=== PATIENT | female | born 1955 | race Caucasian/White ===

== ENCOUNTER 2018-11-14 13:31 | Inpatient (IN) | payer OTHER ==
[~2018-11-14] VITALS: Ht 165.1 cm; Wt 88.0 kg
[~2018-11-14 13:31] MED LIST: HYD25 PO; METOPROLOL50 MG PO; NAPROXEN D/R500 MG PO; NEU300 PO
--- NOTE | 2018-11-14 13:41 | NUR ---
AGENCY DOCUMENTATION DONE BY Staff Name/Title - : ROB CHILD JR [employer] User ID - : [id number] Agency Name - : [employer] Time Documented - From - : 699 To - : 1929
--- NOTE | 2018-11-14 13:47 | NUR ---
ASSUMED PATIENT CARE. NURSING ASSESSMENT COMPLETED.
--- NOTE | 2018-11-14 14:01 | NUR ---
AT BEDSIDE FOR MSE.
[2018-11-14 14:55] LABS: BASOPHIL % 0.6 % (0-2); PLATELET COUNT 216 x10^3mcL (130-400); RED CELL DISTRIBUTION WIDTH 13.5 % (11.5-14.5)
[2018-11-14 15:00] LABS: CALCIUM 8.9 mg/dL (8.5-10.1); CHLORIDE SERUM 105 mmol/L (98-107); CREATININE SERUM 0.6 mg/dL (0.6-1.0); GFR1 > 60 mL/min; GLUCOSE SERUM 92 mg/dL (74-106); POTASSIUM SERUM 3.6 mmol/L (3.5-5.1); SODIUM SERUM 141 mmol/L (136-145)
[2018-11-14 16:51] LABS: CHOLESTEROL/HDL RATIO 3.2; MAGNESIUM 2.2 mg/dL (1.8-2.4); PHOSPHOROUS 4.4 mg/dL (2.5-4.9)
--- NOTE | 2018-11-14 16:53 | NUR ---
DISPO AND MEDICAL DECISION MAKING, INPATIENT ADMISSION FOR FURTHER MANAGEMENT. PATIENT CARE REPORT GIVEN TO NICKIE, CONTINUITY OF CARE ENDORSED.
[2018-11-14 16:59] LABS: FREE T4 1.01 ng/dL (0.76-1.46); FREE THYROXINE INDEX 2.7 ug/dL (1.4-4.5); T4(THYROXINE) 7.9 ug/dL (4.7-13.3)
--- NOTE | 2018-11-14 17:20 | NUR ---
PT WAS RECEIVED BY PRIMARY NURSE NICKIE FROM ED VIA [facility] AT 1705H. PT SEEN SITTING ON THE EDGE OF THE BED, AAOX4. CAME IN DUE TO LEFT ARM PAIN X4 DAYS. DENIES HEADACHE/DIZZINESS. NO SOB NOTED, LUNG SOUNDS CTA. DENIES CHEST PAIN/PRESSURE, SR ON THE MONITOR. DENIES ABDOMINAL DISCOMFORT. HAD REGULAR BM TODAY. VOIDS. IV SITE ON THE RAC IS PATENT AND INTACT. SIDE RAILS UPX2. CALL LIGHT ON REACH. PRIMARY NURSE NICKIE AT BEDSIDE FOR CONTINUITY OF CARE
[2018-11-14 17:22] VITALS: BP 180/82
[2018-11-14 17:26] VITALS: Ht 165.1 cm; Wt 88.0 kg
[2018-11-14] MEDS ORDERED: ASPIRIN FOR CHI81 M1 PO (17:31)
[2018-11-14] MEDS ORDERED: VOL50 PO (17:34)
[2018-11-14] MEDS ORDERED: FUROSEMIDE20 MG PO (17:34)
[2018-11-14] MEDS ORDERED: NOR10 PO ×2 (17:35→17:36)
[2018-11-14 17:51] LABS: T3 TOTAL 0.98 ng/mL
--- NOTE | 2018-11-14 18:09 | NUR ---
PATIENT'S B/P IS 180/[address] CHENG AT BEDSIDE AND IS AWARE. MEDICATED AT THIS TIME WITH NTG. WILL MONITOR FOR EFFECT. PATIENT IS SITTITN UP IN BED WITH FAMILY MEMBERS AT BEDSIDE. CONTINUES TO DENY ANY PAIN OR DISCOMFORT. WILL CONTINUE TO MONITOR.
--- NOTE | 2018-11-14 18:46 | NUR ---
PATIENT SITITING UP IN BED WITH FAMILY MEMBERS AT BEDSIDE. B/P 170/78 AFTER NTG GIVEN SL. CONTINUES TO DENY ANY PAIN.
[2018-11-14 18:52] VITALS: BP 170/78
--- NOTE | 2018-11-14 19:46 | NUR ---
AWAKE AND ALERT, ORIENTED TO NAME, PLACE, TIME AND SITUATION. SPEECH CLEAR AND APPROPRIATE. BREATHING EVEN AND UNLABORED ON ROOM AIR. ABLE TO COMPLETE SENTENCES WITHOUT DIFFICULTY. DENIES HAVING CHEST PAIN. SINUS RHYTHM WITH PACS NOTED. STATED HAVING PAIN TO LEFT FOREARM, STATED GOING ON FOR 2 WEEKS. TYLENOL ADMINISTERED PO FOR PAIN. REINFORCED NEED TO USE CALL LIGHT TO CALL FOR ASSISTANCE. PLACED WITHIN EASY REACH.
[2018-11-14 22:28] VITALS: BP 130/55
--- NOTE | 2018-11-14 23:25 | NUR ---
EYES CLOSED, BREATHING EVEN AND UNLABORED ON ROOM AIR. CALL LIGHT WITHIN EASY REACH.
[2018-11-15 01:09] LABS: microscopic required? NO
[2018-11-15 01:33] LABS: UA SPECIFIC GRAVITY <=1.005 (1.005-1.035); urine erythrocyte NEGATIVE (NEGATIVE)
[2018-11-15 02:09] LABS: AMPHETAMINE QUAL UR NONE DETECTED (See below)
[2018-11-15 05:57] VITALS: BP 169/85
--- NOTE | 2018-11-15 06:22 | NUR ---
AWAKE AND ALERT, STATED HAVING 3-4/10 HEADACHE. TYLENOL ADMINISTERED PO PER PRN ORDER. BREATHING EVEN AND UNLABORED ON ROOM AIR. CALL LIGHT WITHIN EASY REACH. SALINE LOCK TO RIGHT HAND INTACT.
[2018-11-15 06:51] VITALS: BP 148/78
[2018-11-15 06:56] LABS: BASOPHIL % 0.6 % (0-2); PLATELET COUNT 206 x10^3mcL (130-400)
--- NOTE | 2018-11-15 07:06 | NUR ---
AWAKE AND ALERT, IN NO ACUTE DISTRESS. ENDORSED TO NURSE GALA
[2018-11-15 07:12] LABS: CARBON DIOXIDE 28.2 mmol/L (21-32); CHLORIDE SERUM 105 mmol/L (98-107); CREATININE SERUM 0.5 mg/dL (0.6-1.0); GFR1 > 60 mL/min; GLUCOSE SERUM 91 mg/dL (74-106); MAGNESIUM 2.5 mg/dL (1.8-2.4); POTASSIUM SERUM 3.8 mmol/L (3.5-5.1); SODIUM SERUM 141 mmol/L (136-145)
--- NOTE | 2018-11-15 07:48 | NUR ---
AAO TIMES 4. TELE # 13 SR. LUNGS CTA. NO SOB. O2 SAT ON RA 97%. BS'S ACTIVE TIMES 4. PRESTON STRONG. IV SITE RIGHT HAND PATENT, CDI. COOPERATIVE. PERIPHERAL PULSES PALPABLE. NO EDEMA. NO C/O PAIN. NO C/O SOB.
[2018-11-15 09:04] VITALS: BP 131/61
[2018-11-15 11:48] VITALS: BP 165/78
[2018-11-15 16:53] VITALS: BP 155/76
--- NOTE | 2018-11-15 18:12 | NUR ---
AAO TIMES 4. TELE # 13 SR. VS'S STABLE. NO SOB. NO C/O PAIN AT THIS TIME. SHE STATES HER HEADACHE IS BETTER. IV SITE CDI. TO RIGHT HAND. COOPERATIVE. FAMILY PRESENT, SUPPORTIVE.
--- NOTE | 2018-11-15 19:39 | NUR ---
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
[2018-11-15 20:19] VITALS: BP 120/75
--- NOTE | 2018-11-15 21:00 | NUR ---
PM MEDS GIVEN,SWALLOWS WELL.
--- NOTE | 2018-11-16 02:00 | NUR ---
SLEEPING WELL,NO RESP DISTRESS.
--- NOTE | 2018-11-16 05:46 | NUR ---
SLEEPING WELL DURING THE NIGHT.NO REP DISTRESS,NO CHEST PAIN,NO RESP DISTRESS.WILL ENDORSE TO NEXT SHIFT.
[2018-11-16 06:06] VITALS: BP 156/68
[2018-11-16 06:24] LABS: BASOPHIL % 0.6 % (0-2); PLATELET COUNT 220 x10^3mcL (130-400); RED CELL DISTRIBUTION WIDTH 13.5 % (11.5-14.5)
[2018-11-16 06:47] LABS: CALCIUM 9.2 mg/dL (8.5-10.1); CARBON DIOXIDE 27.2 mmol/L (21-32); CHLORIDE SERUM 104 mmol/L (98-107); CREATININE SERUM 0.5 mg/dL (0.6-1.0); GFR1 > 60 mL/min; GLUCOSE SERUM 97 mg/dL (74-106); POTASSIUM SERUM 3.5 mmol/L (3.5-5.1); SODIUM SERUM 141 mmol/L (136-145)
[2018-11-16 08:16] VITALS: BP 154/78
--- NOTE | 2018-11-16 09:21 | NUR ---
AAO TIMES 4. TELE # 13 SR. LUNGS CTA. NO SOB. O2 SAT ON RA 100%. BS'S ACTIVE TIMES 4. PRESTON, BRP WITHOUT DIFFICULTY. IV SITE CDI. SL PATENT, CDI. COOPERATIVE. NO C/O PAIN.
[2018-11-16 12:18] VITALS: BP 152/80
--- NOTE | 2018-11-16 14:18 | NUR ---
GAVE PATIENT AND FAMILY DISCHARGE INSTRUCTIONS, NO PRESCRIPTION. SHE WILL CONTINUE HOME MEDICATIONS. SHE VERBALIZED "I UNDERSTAND" TO ALL INSTRUCTIONS. REMOVED SALINE LOCK ANGIO INTACT.
== END 2018-11-16 14:16 | disposition home or self-care (01) | DRG 199 ==
LOC: ED 13:31 → DU 16:03
PROVIDERS: Emergency Medicine; ADMIT Internal Medicine
DX: I16.0 Hypertensive urgency (principal); I25.2 Old myocardial infarction; S56.812A Strain of other muscles, fascia and tendons at forearm level, left arm, initial encounter; I10 Essential (primary) hypertension; M19.90 Unspecified osteoarthritis, unspecified site; Z68.34 Body mass index [BMI] 34.0-34.9, adult; X58.XXXA Exposure to other specified factors, initial encounter; Y93.89 Activity, other specified; Y92.018 Other place in single-family (private) house as the place of occurrence of the external cause; Z79.82 Long term (current) use of aspirin; Z79.899 Other long term (current) drug therapy
CPT/HCPCS: 83880; 84439; G0378; Q0092

== ENCOUNTER 2019-08-18 23:08 | Emergency (ER) | payer OTHER ==
[~2019-08-18] VITALS: Ht 160 cm; Wt 89.4 kg
[~2019-08-18 23:08] MED LIST changes: +ASPIRIN FOR CHI81 M1 PO; +ATORVASTATIN CA40 M1 PO; +CORE25 PO; +ELIQUIS5 MG PO; +FUROSEMIDE20 MG PO; +LASIX20 MG PO; +LOTENSIN20 MG PO; +MERREM IV1 GM INJ; +NOR10 PO; +VOL50 PO; +ZES20 PO
[2019-08-18 23:15] VITALS: Ht 160 cm; Wt 89.4 kg
[2019-08-19 00:37] VITALS: BP 169/84
== END 2019-08-19 00:37 | disposition home or self-care (01) ==
LOC: ED 23:08
DX: K59.00 Constipation, unspecified (principal); R11.0 Nausea; I10 Essential (primary) hypertension; E78.00 Pure hypercholesterolemia, unspecified
CPT/HCPCS: Q0092

== ENCOUNTER 2019-08-25 19:47 | Inpatient (IN) | payer OTHER ==
[~2019-08-25] VITALS: Ht 160 cm; Wt 89.4 kg
[2019-08-25 19:56] VITALS: Ht 160 cm; Wt 89.4 kg
[2019-08-25 20:53] LABS: BASOPHIL % 0.7 % (0-2); PLATELET COUNT 176 x10^3mcL (130-400); RED CELL DISTRIBUTION WIDTH 13.7 % (11.5-14.5)
[2019-08-25 21:09] LABS: ALBUMIN 3.6 g/dL (3.4-5.0); ALKALINE PHOSPHATASE 70 U/L (46-116); ALT/SGPT 32 U/L (14-59); AST/SGOT 22 U/L (15-37); BILIRUBIN TOTAL 0.5 mg/dL (0.20-1.00); CALCIUM 8.7 mg/dL (8.5-10.1); CARBON DIOXIDE 29.5 mmol/L (21-32); CHLORIDE SERUM 103 mmol/L (98-107); CREATININE SERUM 0.7 mg/dL (0.6-1.0); GFR1 > 60 mL/min; GLUCOSE SERUM 110 mg/dL (74-106); SODIUM SERUM 141 mmol/L (136-145); TOTAL PROTEIN, SERUM 6.9 g/dL (6.4-8.2)
[2019-08-25 21:13] LABS: POTASSIUM SERUM 2.8 mmol/L (3.5-5.1)
[2019-08-25 21:17] LABS: FREE T4 1.21 ng/dL (0.76-1.46); T4(THYROXINE) 8.4 ug/dL (4.7-13.3)
[2019-08-25 21:55] LABS: T3 TOTAL 1.42 ng/mL
[2019-08-25] MEDS ORDERED: ZESTRIL40 MG PO (23:05)
[2019-08-25] MEDS ORDERED: CIPRO500 MG PO (23:06)
[2019-08-25] MEDS ORDERED: AMLODIPINE BES2.5 M1 PO (23:06)
[2019-08-26] VITALS (8 sets, daily range): BP systolic 132–182; BP diastolic 66–86
[2019-08-26 00:58] LABS: PHOSPHOROUS 3.3 mg/dL (2.5-4.9)
[2019-08-26 01:02] LABS: CHOLESTEROL/HDL RATIO 1.8
[2019-08-26 02:48] LABS: microscopic required? NO
[2019-08-26 02:59] LABS: UA SPECIFIC GRAVITY 1.015 (1.005-1.035); urine erythrocyte NEGATIVE (NEGATIVE)
[2019-08-26 03:16] LABS: AMPHETAMINE QUAL UR NONE DETECTED (See below)
[2019-08-26 06:33] LABS: BASOPHIL % 0.7 % (0-2); PLATELET COUNT 176 x10^3mcL (130-400); RED CELL DISTRIBUTION WIDTH 13.4 % (11.5-14.5)
[2019-08-26 07:27] LABS: CARBON DIOXIDE 27.9 mmol/L (21-32); CHLORIDE SERUM 106 mmol/L (98-107); CREATININE SERUM 0.5 mg/dL (0.6-1.0); GFR1 > 60 mL/min; GLUCOSE SERUM 100 mg/dL (74-106); MAGNESIUM 2.1 mg/dL (1.8-2.4); PHOSPHOROUS 3.5 mg/dL (2.5-4.9); SODIUM SERUM 142 mmol/L (136-145)
[2019-08-27 05:25] VITALS: BP 151/86
[2019-08-27 06:35] LABS: BASOPHIL % 0.8 % (0-2); PLATELET COUNT 176 x10^3mcL (130-400); RED CELL DISTRIBUTION WIDTH 14.1 % (11.5-14.5)
[2019-08-27 07:25] LABS: CALCIUM 9.2 mg/dL (8.5-10.1); CARBON DIOXIDE 28.5 mmol/L (21-32); CHLORIDE SERUM 104 mmol/L (98-107); CREATININE SERUM 0.6 mg/dL (0.6-1.0); GFR1 > 60 mL/min; GLUCOSE SERUM 101 mg/dL (74-106); MAGNESIUM 2.2 mg/dL (1.8-2.4); PHOSPHOROUS 3.9 mg/dL (2.5-4.9); POTASSIUM SERUM 3.5 mmol/L (3.5-5.1); SODIUM SERUM 140 mmol/L (136-145)
[2019-08-27 09:47] VITALS: BP 150/79
[2019-08-27] MEDS ORDERED: MACROBID100 MG PO (10:33)
[2019-08-27] MEDS ORDERED: DILTIAZEM HCL120 M3 PO (10:33)
[2019-08-27 11:05] VITALS: BP 150/79
== END 2019-08-27 12:59 | disposition home or self-care (01) | DRG 689 ==
LOC: ED 19:47 → DU 22:22 → MU 08-26 17:15
PROVIDERS: Emergency Medicine; ADMIT Internal Medicine
DX: N39.0 Urinary tract infection, site not specified (principal); I21.A1 Myocardial infarction type 2; I16.1 Hypertensive emergency; I42.9 Cardiomyopathy, unspecified; I11.9 Hypertensive heart disease without heart failure; E78.00 Pure hypercholesterolemia, unspecified; E87.6 Hypokalemia; Z79.899 Other long term (current) drug therapy
CPT/HCPCS: 83880; 84439; G0378; J2185; J3480; J7050; Q0092; U0003-CS

== ENCOUNTER 2019-09-02 23:45 | Emergency (ER) | payer OTHER ==
[~2019-09-02] VITALS: Ht 170.2 cm; Wt 81.6 kg
[~2019-09-02 23:45] MED LIST changes: +AMLODIPINE BES2.5 M1 PO; +CIPRO500 MG PO; +DILTIAZEM HCL120 M3 PO; +MACROBID100 MG PO; +ZESTRIL40 MG PO
[2019-09-02 23:56] VITALS: Ht 170.2 cm; Wt 81.6 kg
[2019-09-03 01:52] LABS: BASOPHIL % 1.4 % (0-2); PLATELET COUNT 210 x10^3mcL (130-400); RED CELL DISTRIBUTION WIDTH 12.6 % (11.5-14.5)
[2019-09-03 02:33] LABS: CALCIUM 8.8 mg/dL (8.5-10.1); CARBON DIOXIDE 25.4 mmol/L (21-32); CHLORIDE SERUM 105 mmol/L (98-107); CREATININE SERUM 0.6 mg/dL (0.6-1.0); GFR1 > 60 mL/min; GLUCOSE SERUM 118 mg/dL (74-106); POTASSIUM SERUM 3.1 mmol/L (3.5-5.1); SODIUM SERUM 142 mmol/L (136-145)
[2019-09-03 02:38] LABS: ALBUMIN 3.7 g/dL (3.4-5.0); ALKALINE PHOSPHATASE 82 U/L (46-116); ALT/SGPT 26 U/L (14-59); AST/SGOT 17 U/L (15-37); BILIRUBIN TOTAL 0.7 mg/dL (0.20-1.00); LIPASE 125 IU/L (73-393)
[2019-09-03 05:17] VITALS: BP 150/78
== END 2019-09-03 05:15 | disposition home or self-care (01) ==
LOC: ED 23:45
PROVIDERS: Emergency Medicine
DX: K80.00 Calculus of gallbladder with acute cholecystitis without obstruction (principal); I10 Essential (primary) hypertension; E78.00 Pure hypercholesterolemia, unspecified
CPT/HCPCS: 83880; J2405; J3490; J7030; Q0092

== ENCOUNTER 2019-09-03 20:10 | Emergency (ER) | payer OTHER ==
[~2019-09-03] VITALS: Ht 162.6 cm; Wt 88.5 kg
[2019-09-03 20:20] VITALS: Ht 162.6 cm; Wt 88.5 kg
[2019-09-03 23:22] VITALS: BP 150/89
== END 2019-09-03 23:22 | disposition home or self-care (01) ==
LOC: ED 20:10
DX: K59.00 Constipation, unspecified (principal); I10 Essential (primary) hypertension; E78.00 Pure hypercholesterolemia, unspecified
CPT/HCPCS: J0500; Q0092

== ENCOUNTER 2019-09-09 10:16 | Emergency (ER) | payer OTHER ==
[~2019-09-09] VITALS: Ht 162.6 cm; Wt 87.1 kg
[2019-09-09 10:18] VITALS: Ht 162.6 cm; Wt 87.1 kg
[2019-09-09] MEDS ORDERED: PRILOSEC OTC20 M1 PO (10:47)
[2019-09-09 11:28] LABS: BASOPHIL % 0.9 % (0-2); PLATELET COUNT 211 x10^3mcL (130-400); RED CELL DISTRIBUTION WIDTH 13.6 % (11.5-14.5)
[2019-09-09 11:39] LABS: CALCIUM 8.9 mg/dL (8.5-10.1); CARBON DIOXIDE 25.3 mmol/L (21-32); CHLORIDE SERUM 104 mmol/L (98-107); CREATININE SERUM 0.6 mg/dL (0.6-1.0); GFR1 > 60 mL/min; GLUCOSE SERUM 117 mg/dL (74-106); POTASSIUM SERUM 3.5 mmol/L (3.5-5.1); SODIUM SERUM 140 mmol/L (136-145)
[2019-09-09 11:43] LABS: ALBUMIN 3.8 g/dL (3.4-5.0); ALKALINE PHOSPHATASE 67 U/L (46-116); ALT/SGPT 30 U/L (14-59); AST/SGOT 20 U/L (15-37); BILIRUBIN TOTAL 0.6 mg/dL (0.20-1.00); CHOLESTEROL 124 mg/dL (<200); HDL CHOLESTEROL 68 mg/dL (40-60); LIPASE 106 IU/L (73-393); PHOSPHOROUS 3.1 mg/dL (2.5-4.9); TOTAL PROTEIN, SERUM 7.3 g/dL (6.4-8.2); URIC ACID 1.8 mg/dL (2.6-6.0)
[2019-09-09 12:36] VITALS: BP 144/66
== END 2019-09-09 12:36 | disposition home or self-care (01) ==
LOC: ED 10:16
PROVIDERS: Emergency Medicine
DX: K29.70 Gastritis, unspecified, without bleeding (principal); I10 Essential (primary) hypertension; E78.00 Pure hypercholesterolemia, unspecified
CPT/HCPCS: 36415; Q0092